=== PATIENT | female | born 1995 | race Caucasian/White ===

== ENCOUNTER 2018-05-23 22:16 | Emergency (ER) | END 2018-05-24 02:02 | disposition home or self-care (01) ==

== ENCOUNTER 2018-11-07 12:16 | Outpatient (CLI) | payer OTHER ==
[~2018-11-07] VITALS: Ht 157.5 cm; Wt 94.2 kg
[~2018-11-07 12:16] MED LIST: ACET500C5 PO; METO10TA92 PO; PREN-93 PO
[2018-11-07 12:34] VITALS: Ht 157.5 cm; Wt 94.2 kg
[2018-11-07 12:35] VITALS: BP 110/66; PULSE 87; RESP 18
--- NOTE | 2018-11-07 17:06 | PN ---
Triage Information Date/Time Reason for visit: DFM Weeks of Gestation 37+ /Para n.a Diabetes: none Hypertention: none Objective Vital Signs Date Temp Pulse Resp B/P (MAP) Pulse Ox O2 O2 Flow FiO2 Time Delivery Rate 11/07/18 98.1 87 18 110/66 Room Air 12:35 (81) Heart Rate: 140's Contractions: None Disposition: Discharge Assessment/Plan BPP 06/22 Cx closed +FM --->Discharged with precautions --->Questions answered --->Follow up with provider DANNY SONI M.D. Nov 07, 2018 17:06
== END 2018-11-07 17:11 | disposition home or self-care (01) ==
LOC: L-D 12:16 → OBT 12:16 → L-D 12:20 → OBT 17:11
PROVIDERS: ATTEND Obstetrics & Gynecology
DX: O36.8130 Decreased fetal movements, third trimester, not applicable or unspecified (principal); Z3A.37 37 weeks gestation of pregnancy
CPT/HCPCS: 76815; 76818; Z7500; G0463

== ENCOUNTER 2018-11-23 09:34 | Inpatient (IN) | payer OTHER ==
[~2018-11-23] VITALS: Ht 157.5 cm; Wt 95.7 kg
[~2018-11-23 09:34] MED LIST changes: -ACET500C5 PO; -METO10TA92 PO
[2018-11-23 10:44] VITALS: Ht 157.5 cm; Wt 95.7 kg
[2018-11-23 10:45] VITALS: BP 124/81; PULSE 86; RESP 18
[2018-11-23] MEDS ORDERED: LIDOCAINE 1% (MPF) 30 ML INJ INJ PRN (11:30)
[2018-11-23] MEDS ORDERED: OXYTOCIN 30 UNITS/LR 500 ML IV SCH ×2 (11:30)
[2018-11-23] MEDS ORDERED: BUTORPHANOL 1 MG INJ IV PRN (11:30)
[2018-11-23] MEDS ORDERED: AMPICILLIN 2 GM/NS (PMX) 100 ML IV ONE (11:30)
[2018-11-23] MEDS ORDERED: CARBOPROST 250 MCG INJ IM PRN (11:30)
[2018-11-23] MEDS ORDERED: OXYTOCIN 30 UNITS/LR 500 ML IV PRN (11:30)
[2018-11-23] MEDS ORDERED: METHYLERGONOVINE 0.2 MG INJ IM PRN (11:30)
[2018-11-23] MEDS ORDERED: MISOPROSTOL 200 MCG TAB PR PRN (11:30)
[2018-11-23] MEDS: LACTATED RINGER'S 1,000 ML IV SCH ×2 (13:31→21:53)
[2018-11-23] MEDS: AMPICILLIN 1 GM/NS (PMX) 50 ML IV SCH ×2 (19:05→23:20)
--- NOTE | 2018-11-23 19:14 | HP ---
Date/Time of Note Date/Time of Note DATE: 11/23/18 TIME: 19:07 OB - History Hx of Present Chief Complaint: contractions Estimated Due Date: Nov 26, 2018 : 2 Para: 0 Spontaneous : 0 Therapeutic : 1 Care: Good Care Ultrasounds: Normal mid trimester US Obstetrical Complications: None Medical Complications: None Past Family/Social History * Past Medical, Surgical, Family and Obstetric Histories reviewed from chart. GBS Status: Positive OB Admission Exam Vital Signs Vital Signs Vital Signs Date Temp Pulse Resp B/P (MAP) Pulse Ox O2 O2 Flow FiO2 Time Delivery Rate 11/23/18 97.9 86 18 124/81 10:45 (95) Physical Exam HEENT: WNL Heart: Rhythm Normal Lungs: Clear, Equal Abdomen: WNL Extremities: Normal Reflexes: Normal Cervical Dilatation: 3cm Effacement: 50% Station: -1 Membranes: Intact Heart Rate: 120's Accelerations: Accelerations Present Decelerations: No Decelerations Varibility: Moderate Last 72 hours Lab Results CBC & BMP 11/23/18 12:25 OB Assessment/Plan Reason for admission: other Other Assessment: Early labor Plan: Other Other plan: Expectant management Augment labor as needed WILLEM REAVES MD Nov 23, 2018 19:14
[2018-11-23] MEDS: BUTORPHANOL 2 MG INJ IV PRN (23:21)
[2018-11-24] MEDS: AMPICILLIN 1 GM/NS (PMX) 50 ML IV SCH ×4 (03:30→13:22)
[2018-11-24] MEDS: BUTORPHANOL 2 MG INJ IV PRN ×3 (04:54→11:34)
[2018-11-24] MEDS: LACTATED RINGER'S 1,000 ML IV SCH ×4 (04:55→14:37)
[2018-11-24] MEDS ORDERED: OXYTOCIN 30 UNITS/LR 500 ML IV SCH (06:30)
[2018-11-24] MEDS ORDERED: IBUPROFEN 600 MG TAB PO PRN (10:30)
[2018-11-24] MEDS ORDERED: MINERAL OIL LIGHT 10 ML VIAL TOP ONE (10:30)
--- NOTE | 2018-11-24 11:45 | PREAC ---
Date/Time of Note Date/Time of Note DATE: 11/24/18 TIME: 11:44 Anesthesia Eval and Record Evaluation Time Pre-Procedure Interview DATE: 11/24/18 TIME: 11:44 Age 23 Sex female NPO: 8 hrs Preoperative diagnosis LABOR PAIN Planned procedure LABOR EPIDURAL Past Medical History Past Medical History: Includes : : (2), Para: (0), Gestational age: (39 5/7) Surgery & Anesthesia Issues No known issue Meds Anticoagulation: No Beta Brent within 24 hr: No Reason Beta Bretn not given: Pt. not on B-Brent Active Scripts Vit No.124/Iron/FA ( Vitamin Tablet) 1 Each Tablet, 1 EACH PO DAILY, #30 TAB Prov:ANASAMUELLYLE Robbie 05/24/18 Current Medications Lactated Ringer's 1,000 ml @ 125 mls/hr Q8H IV Last administered on 11/24/18at 11:33; Admin Dose 125 MLS/HR; Start 11/23/18 at 11:30 Ampicillin 50 ml @ 100 mls/hr Q4H IV Last administered on 11/24/18at 09:21; Admin Dose 100 MLS/HR; Start 11/23/18 at 15:30 Butorphanol Tartrate (Stadol) 1 mg Q2H PRN IV .PAIN; Start 11/23/18 at 11:30 Butorphanol Tartrate (Stadol) 2 mg Q2H PRN IV .PAIN Last administered on 11/24/18at 11:34; Admin Dose 2 MG; Start 11/23/18 at 11:30 Lidocaine (Xylocaine 1% (Mpf)) 30 ml ONCE PRN INJ .EPISIOTOMY; Start 11/23/18 at 11:30 Oxytocin/Lactated Ringer's 500 ml @ 500 mls/hr ONCE POST IV ; Start 11/23/18 at 11:30 Oxytocin/Lactated Ringer's 500 ml @ 125 mls/hr POST IV ; Start 11/23/18 at 11:30 Oxytocin/Lactated Ringer's 500 ml @ 0 mls/hr ONCE PRN IV .VAGINAL BLEEDING; Start 11/23/18 at 11:30 Methylergonovine Maleate (Methergine) 0.2 mg ONCE PRN IM .VAGINAL BLEEDING; Start 11/23/18 at 11:30 Carboprost Tromethamine (Hemabate) 250 mcg ONCE PRN IM .VAGINAL BLEEDING; Start 11/23/18 at 11:30 Misoprostol (Cytotec) 1,000 mcg ONCE PRN MO .VAGINAL BLEEDING; Start 11/23/18 at 11:30 Oxytocin/Lactated Ringer's 500 ml @ 0 mls/hr FOR AUGMENTATION IV Last administered on 11/24/18at 06:47; Admin Dose 1 MLS/HR; Start 11/24/18 at 06:30 Ibuprofen (Motrin) 600 mg ONCE PRN PO .PAIN 1-5; Start 11/24/18 at 10:30 Meds reviewed: Yes Allergies Coded Allergies: No Known Drug Allergies (Verified Allergy, Unknown, 11/07/18) Allergies Reviewed: Yes Labs/Studies Labs Reviewed: Reviewed by anesthesiologist Result Diagram: 11/23/18 1225 Laboratory Tests 11/23/18 12:25 Blood Bank Test 11/23/18 12:25 Antibody Screen NEGATIVE Blood Type O POSITIVE Rh Immune Globulin Candidate NO test: N/A Pre-procedure Exam Last vitals Vital Signs Date Temp Pulse Resp B/P (MAP) Pulse Ox O2 O2 Flow FiO2 Time Delivery Rate 11/23/18 97.9 86 18 124/81 10:45 (95) Airway: Adequate mouth opening, Adequate thyromental dist Mallampati: Mallampati II Teeth: Normal Lung: Normal Heart: Normal ASA Physical Status ASA physical status: 3 Emergency: None Planned Anesthetic Neuraxial: Epidural Planned Pain Management Epidural Pre-operative Attestations Prior to commencing anesthesia and surgery, the patient was re-evaluated, there was verification of: *The patient's identity *The results of appropriate recent lab work and preoperative vital signs *The above evaluation not changing prior to induction *Anesthetic plan, risk benefits, alternative and complications discussed with patient/family; questions answered; patient/family understands, accepts and wishes to proceed. Vernon San M.D. Nov 24, 2018 11:45
[2018-11-24] MEDS ORDERED: FENTAnyl 2MCG/ML-ROPIV 0.2% 100 ML ONE (12:17)
--- NOTE | 2018-11-24 12:49 | PAC ---
Date/Time of Note Date/Time of Note DATE: 11/24/18 TIME: 12:48 Post-Anesthesia Notes Post-Anesthesia Note Last documented vital signs Vital Signs Date Temp Pulse Resp B/P (MAP) Pulse Ox O2 O2 Flow FiO2 Time Delivery Rate 11/23/18 97.9 86 18 124/81 10:45 (95) Activity: WNL Respiratory function: WNL Cardiovascular function: WNL Mental status: Baseline Pain reasonably controlled: Yes Hydration appropriate: Yes Nausea/Vomiting absent: Yes Vernon San M.D. Nov 24, 2018 12:49
[2018-11-24] MEDS ORDERED: NALOXONE (0.4 MG/ML) INJ IV PRN (13:00)
[2018-11-24] MEDS ORDERED: FENTAnyl 2MCG/ML-ROPIV 0.2% 100 ML BAG EPI SCH (13:00)
--- NOTE | 2018-11-24 16:54 | LDN ---
Date/Time of Note Date/Time of Note DATE: 11/24/18 TIME: 16:51 Delivery Summary Weeks of Gestation 39+ weeks Placenta Delivered: Spontaneously Meconium: none Episiotomy: No Laceration repair: Second degree perineal laceration repaired with 3-0 Vicryl. Anesthesia type: Epidural Estimated blood loss: 200 Sponge & Needle done & correct: Yes All needle counts correct: Yes Any foreign bodies felt in the: No Delivery Information Sex Sex: female Apgars 1 Minute: 8 5 Minute: 9 Suctioning Nose & mouth suctioned at [place]: No Umbilical Cord Umbilical cord with: 3 Vessels Cord presentations: no nuchal cord Cord Blood was obtained: Yes Mother & Baby Disposition Disposition Mom & Baby to Maternity; Good: Yes WILLEM REAVES MD Nov 24, 2018 16:54
[2018-11-24] MEDS: LACTATED RINGER'S 1,000 ML IV* SCH (18:06)
[2018-11-24 18:10] VITALS: BP 119/65; PULSE 102; RESP 18
[2018-11-24] MEDS ORDERED: DIBUCAINE 1% 30 GM OINT TOP PRN (18:30)
[2018-11-24] MEDS ORDERED: OXYTOCIN 30 UNITS/LR 500 ML IV PRN (18:30)
[2018-11-24] MEDS ORDERED: WITCH HAZEL/GLYCERIN PAD PR PRN (18:30)
[2018-11-24] MEDS: IBUPROFEN 600 MG TAB PO SCH ×2 (18:30→23:23)
[2018-11-24] MEDS ORDERED: MISOPROSTOL 200 MCG TAB PR PRN (18:30)
[2018-11-24] MEDS ORDERED: BENZOCAINE 20% 56 ML SPRAY TOP PRN (18:30)
[2018-11-24] MEDS ORDERED: CARBOPROST 250 MCG INJ IM PRN (18:30)
[2018-11-24] MEDS ORDERED: ACETAMINOPHEN 325 MG TAB PO PRN (18:30)
[2018-11-24] MEDS: SENNA/DOCUSATE NA (8.6MG/50MG) TAB PO SCH (23:23)
[2018-11-25] MEDS: LACTATED RINGER'S 1,000 ML IV* SCH ×3 (02:06→18:06)
[2018-11-25] MEDS: HYDROCODONE/APAP (5/325) TAB PO PRN ×2 (04:43→20:43)
[2018-11-25] MEDS: IBUPROFEN 600 MG TAB PO SCH ×3 (06:15→17:11)
[2018-11-25 08:00] VITALS: BP 114/70; PULSE 75; RESP 18
[2018-11-25] MEDS: SENNA/DOCUSATE NA (8.6MG/50MG) TAB PO SCH ×2 (09:00→20:43)
[2018-11-25 12:00] VITALS: BP 118/71; PULSE 68; RESP 18
[2018-11-25 15:48] VITALS: BP 120/83; PULSE 80; RESP 19
--- NOTE | 2018-11-25 20:03 | DS ---
Date/Time of Note Date/Time of Note DATE: 11/25/18 TIME: 20:03 Obstetrical Discharge Record Final Diagnosis Final Diagnosis: Term delivered Vaginal Delivery Obstetrical Delivery: Spontaneous Complications Augmentation: Yes Condition on Discharge Physical Assessment Voiding: Yes Bowel Movement: Yes Breast: Soft, non-tender, Filling Fundus: Firm Calf Tenderness: No Patient Condition: Stable WILLEM REAVES MD Nov 25, 2018 20:03
[2018-11-25 20:15] VITALS: BP 118/79; PULSE 99; RESP 18
[2018-11-26] MEDS: IBUPROFEN 600 MG TAB PO SCH ×3 (01:00→13:07)
[2018-11-26 04:20] VITALS: BP 123/56; PULSE 91; RESP 18
[2018-11-26] MEDS: HYDROCODONE/APAP (5/325) TAB PO PRN (06:39)
[2018-11-26] MEDS ORDERED: SUMATRIPTAN 50 MG TAB PO PRN ×2 (07:30→08:00)
[2018-11-26] MEDS ORDERED: ACET/BUTAL/CAFF TAB PO PRN (08:00)
[2018-11-26 08:30] VITALS: BP 109/66; PULSE 73; RESP 17
[2018-11-26] MEDS ORDERED: DIPHTH/TET/ACEL PERTUSS (ADULT) 0.5 ML VIAL IM* ONE (09:00)
[2018-11-26] MEDS: SENNA/DOCUSATE NA (8.6MG/50MG) TAB PO SCH (09:41)
--- NOTE | 2018-11-26 11:29 | OPPN ---
Date/Time of Note Date/Time of Note DATE: 11/26/18 TIME: 08:00 Event Note pt. complains of severe postural headache relieved with recumbency. she denies diplopia. on exam vitals are stable. afebrile. cn ii-xii intact. labs are reviewed. I believe patient has a mild to moderate postdural puncture headache. I explain conservative method vs. ebp for relief of pdph. she chooses ebp. then consent signed. pt. sitting. in a sterile manner epidural space is easily accessed and then 20 cc of peripheral blood is withdrawn in sterile manner and 15 cc are injected into the epidural space. then pt. to recumbent position for 45 min and then ambulatory. she reports resolution of headache. no complications. CLAUDIO SQUIRES MD Nov 26, 2018 11:29
== END 2018-11-26 14:10 | disposition home or self-care (01) | DRG 807 ==
LOC: OBT 09:34 → L-D 09:35 → OBT 11:25 → L-D 14:47 → PP1 11-24 17:55
PROVIDERS: ADMIT Obstetrics & Gynecology; ATTEND Obstetrics & Gynecology
PROC: 10E0XZZ Delivery of Products of Conception, External Approach (ICD-10-PCS; principal; 2018-11-24)
PROC: 0KQM0ZZ Repair Perineum Muscle, Open Approach (ICD-10-PCS; 2018-11-24)
PROC: 3E0R3GC Introduction of Other Therapeutic Substance into Spinal Canal, Percutaneous Approach (ICD-10-PCS; 2018-11-26)
DX: O99.824 Streptococcus B carrier state complicating childbirth (principal); Z37.0 Single live birth; O70.1 Second degree perineal laceration during delivery; G97.1 Other reaction to spinal and lumbar puncture; Y84.4 Aspiration of fluid as the cause of abnormal reaction of the patient, or of later complication, without mention of misadventure at the time of the procedure; Y92.239 Unspecified place in hospital as the place of occurrence of the external cause; Z3A.37 37 weeks gestation of pregnancy; Z3A.39 39 weeks gestation of pregnancy
CPT/HCPCS: 62319; 76818; 80053; 81001; 84560; 85025; 85610; 85730; 86592; 86850; 86900; 86901; 87340; 99464; G0463; J0290; J0595; J2590; J3010; J7120